=== PATIENT | male | born 1935 | race Caucasian/White ===

== ENCOUNTER 2022-04-12 11:21 | Emergency (ER) | payer MEDICARE, OTHER ==
[2022-04-12 12:07] LABS: HEMOGLOBIN 15.8 gm/dl (14.0-17.5); RED BLOOD COUNT 5.3 M/UL (4.20-5.50); WHITE BLOOD COUNT 9.5 K/UL (4.5-11.0)
[2022-04-12 12:30] LABS: BUN/CREATININE RATIO 14 (0-10)
== END 2022-04-12 13:55 | disposition home or self-care (01) ==
LOC: ER1 11:21
PROVIDERS: Nurse Practitioner
DX: M25.511 Pain in right shoulder (principal); E11.9 Type 2 diabetes mellitus without complications; I10 Essential (primary) hypertension; Z88.0 Allergy status to penicillin
CPT/HCPCS: 73030; 80053; 82550; 82553; 82962; 84484; 85025; 96374; 99283; J1885